=== PATIENT | male | born 1955 | race Caucasian/White ===

== ENCOUNTER 2018-11-11 09:17 | Emergency (ER) | payer OTHER, MEDICARE ==
[~2018-11-11] VITALS: Ht 180.3 cm; Wt 127.0 kg
[~2018-11-11 09:17] MED LIST: CARISOPRODOL350 MG PO; CRESTOR10 MG PO; DUTOPROL 100-11 EACH PO; FORTAMET500 MG PO; NORVASC10 MG PO; OMEPRAZOLE40 MG PO
--- NOTE | 2018-11-11 10:50 | Diagnostic Imaging Report ---
History: Fall, facial trauma Comparison studies:None Technique: Axial images were obtained to the vertex and maxillofacial region. Coronal and sagittal images reconstructed from the axial data. Intravenous contrast: None Dose modulation, iterative reconstruction, and/or weight based adjustment of the mA/kV was utilized to reduce the radiation dose to as low as reasonably achievable. Findings: Scalp/skull: No abnormalities. No fractures, blastic or lytic lesions. Extra-axial spaces: No masses. No fluid collections. Brain sulci: Appropriate for age. Ventricles: Normal in size and configuration. No hydrocephalus. Parenchyma: Few hypodensities of the periventricular and deep white matter. No masses, hemorrhage, acute or chronic cortical vascular insults. Sellar/suprasellar region: No abnormalities Craniocervical junction: Patent foramen magnum. No Chiari one malformation. Atherosclerotic calcifications of the carotid siphons Maxillofacial CT: Soft tissues: Left premaxillary and preseptal soft tissue swelling Bones: No fractures or bone abnormalities. Orbits: Globes: Intact Extra or intraconal abnormalities: None. Paranasal sinuses: Nonspecific mucosal thickening at the left frontal, right sphenoid and right maxillary sinuses Incidental findings: Degenerative changes of the atlantoaxial joint. Partially visualized anterior fusion at C4 Impression: Head CT: 1. No acute intracranial abnormality 2. Mild chronic microvascular ischemic changes Maxillofacial CT: 1. Right premaxillary and preseptal soft tissue swelling without underlying fracture. Left premaxillary hematoma. 2. Nonspecific mucosal thickening at the left frontal, right sphenoid and maxillary sinuses. Signed by: DR Roddy Green M.D. on 11/11/2018 10:47 AM
[2018-11-11] MEDS ORDERED: KETOROLAC TROMETHAMINE 10 MG TAB PO ONE (11:00)
[2018-11-11] MEDS ORDERED: DEXAMETHASONE 4 MG TAB PO ONE (11:00)
== END 2018-11-11 11:32 | disposition home or self-care (01) ==
LOC: ER 09:17
DX: S00.83XA Contusion of other part of head, initial encounter (principal); S00.12XA Contusion of left eyelid and periocular area, initial encounter; W06.XXXA Fall from bed, initial encounter; Y93.84 Activity, sleeping; Y92.003 Bedroom of unspecified non-institutional (private) residence as the place of occurrence of the external cause; J98.4 Other disorders of lung
CPT/HCPCS: 70450; 70486; 99283; J8540

== ENCOUNTER 2019-11-20 13:58 | Outpatient (RCR) | payer MEDICARE, OTHER | END 2019-12-06 | LOC: PT 13:58 | PROVIDERS: ATTEND Neurological Surgery | DX: M50.01 Cervical disc disorder with myelopathy, high cervical region (principal) | CPT/HCPCS: 97139 ==

== ENCOUNTER → 2020-09-27 | Outpatient (CLI) | payer MEDICARE, OTHER ==
[~2020-09-27] MED LIST changes: +IOPAMIDOL 370 MG/ML 200 ML INFUS..BTL INJ ONE; +SODIUM CHLORIDE 0.9% 50ML 50 ML ONE
[2020-09-27 08:14] LABS: BLOOD UREA NITROGEN 16 mg/dL (7-26); BUN/CREATININE RATIO 15 (6-25); CREATININE, SERUM 1.08 mg/dL (0.72-1.25); EST GLOMERULAR FILTRATION RATE > 60 ML/MIN (60-)
== END ==
LOC: CT 07:00
PROVIDERS: ATTEND Family Medicine
DX: R10.811 Right upper quadrant abdominal tenderness (principal)
CPT/HCPCS: 36415; 74177; 82565; 84520; Q9967

== ENCOUNTER → 2020-10-07 | Outpatient (RCR) | payer MEDICARE, OTHER ==
[~2020-10-07] MED LIST changes: -IOPAMIDOL 370 MG/ML 200 ML INFUS..BTL INJ ONE; -SODIUM CHLORIDE 0.9% 50ML 50 ML ONE
== END ==
LOC: PT 09-13 16:08
PROVIDERS: ATTEND Family Medicine
DX: M54.2 Cervicalgia (principal)

== ENCOUNTER 2020-11-04 09:33 | Outpatient (RCR) | payer MEDICARE, OTHER | END 2020-11-07 | LOC: PT 09:33 | PROVIDERS: ATTEND Family Medicine | DX: M54.2 Cervicalgia (principal) ==

== ENCOUNTER 2020-11-11 09:42 | Outpatient (RCR) | payer MEDICARE, OTHER | END 2020-12-05 | LOC: PT 09:42 | PROVIDERS: ATTEND Family Medicine | DX: M54.2 Cervicalgia (principal) | CPT/HCPCS: 97139 ==

== ENCOUNTER 2025-03-12 10:45 | Outpatient (RCR) | payer MEDICARE, OTHER | END 2025-04-06 | LOC: PT 10:45 | PROVIDERS: ATTEND Student in an Organized Health Care Education/Training Program | DX: M47.816 Spondylosis without myelopathy or radiculopathy, lumbar region (principal) ==